=== PATIENT | female | born 2000 | race Caucasian/White ===

== ENCOUNTER 2024-09-21 17:08 | Day surgery (SDC) | payer SELFPAY ==
[2024-09-21 14:41] VITALS: BP 128/95
--- NOTE | 2024-09-21 16:10 | CON.GI ---
Consultation
-
Date/Time Consultation Performed: 09/21/24
Performing Provider: Ryder Faulkner MD
Reason for Consultation: ingested foreign body
Medical History
Chief Complaint / HPI
Chief Complaint: ingested foreign body
History of Present Illness:
The patient is a 19-year-old female past medical history with ingested foreign body. About an hour and a half ago she swallowed the bar part of her tongue ring. She is feeling okay, denies any chest pain, abdominal pain, nausea or vomiting. She
is swallowed the ball part in the past that was never swallowed the bar part. She has no other significant GI issues usually.
Past Medical History
Past Medical History: Other (anxiety)
Past Surgical History: None
Social History
Tobacco: Non-Smoker
Alcohol: None
Family History
Family History: Reviewed & Not Pertinent
Allergies / Home Medications
Allergy/AdvReac Type Severity Reaction Status Date / Time
No Known Allergies Allergy Verified 09/21/24 14:41
Review of Systems
Vital Signs
Temp Pulse Resp BP Pulse Ox
98 F 108 16 128/95 98
09/21/24 14:41 09/21/24 14:41 09/21/24 14:41 09/21/24 14:41 09/21/24 14:41
Physical Exam
Exam
General: NAD
HEENT: MMM, anicteric, no lymphadenopathy
Heart: Regular, no murmurs
Lungs: CTA bilaterally
Abdomen: normal bowel sounds, soft, no tenderness, no rebound or guarding, no masses, bruits or ascites
Extremeties: no edema
Skin: no rashes
Results
Diagnostic Image Results:
KUB shows metallic object in the left upper quadrant, likely within the stomach
Prior GI Procedures:
EGD:
Colonoscopy:
Assessment / Plan
-
1. Ingested foreign body: While the likelihood of perforation is small with tongue ring bar, given still remaining in the stomach we will plan urgent EGD for removal.
-
-
Thank you for consultation and allowing me to participate in the patient's care. Please call the chief controller tower GI physician during the after hours with any questions or concerns.
[2024-09-21 16:11] LABS: % Basophils 0.2 % (0-2); % Eosinophils 1.5 % (0-6); % Immature Granulocytes 0.2 % (0-0.5); % Lymphocytes 21.7 % (20.5-51.1); % Monocytes 5.1 % (1.7-9.3); % Neutrophils 71.3 % (42.2-75.2); Absolute Eosinophils 0.2 10^3/uL (0-0.7); Absolute Lymphocytes 2.3 10^3/uL (1.2-3.4); Absolute Monocytes 0.6 10^3/uL (0.1-0.6); Absolute Neutrophils 7.7 10^3/uL (1.4-6.5); Hematocrit 41.5 % (37.0-47.0); Hemoglobin 14.3 g/dL (12.0-16.0); Mean Corp Hgb Conc. 34.5 g/dL (33.0-37.0); Mean Corpuscular Hgb 30.9 pg (27.0-31.0); Mean Corpuscular Volume 89.6 fL (81.0-99.0); Mean Platelet Volume 8.6 fL (7.4-10.4); Nucleated Red Blood Cells % 0 %; Platelet Count 304 10^3/uL (130-400); Red Blood Cell Count 4.63 10^6/uL (4.20-5.40); White Blood Cell Count 10.7 10^3/uL (4.8-10.8)
[2024-09-21 16:23] LABS: APTT 28.3 Sec (23.4-35.0); INR 1.02; PT 13.7 Sec (11.4-14.6)
[2024-09-21 16:45] LABS: ALT (SGPT) 11 U/L (0-35); AST (SGOT) 20 U/L (14-36); Albumin 4.5 g/dl (3.5-5.0); Alkaline Phosphatase 55 U/L (38-126); Blood Urea Nitrogen 11 mg/dl (7-17); Calcium 9.8 mg/dl (8.4-10.2); Carbon Dioxide 27 mmol/L (22-30); Chloride 106 mmol/L (98-107); Glucose 94 mg/dl (70-99); Potassium 4.1 mmol/L (3.5-5.1); Sodium 140 mmol/L (135-145); Total Protein 6.5 g/dl (6.3-8.2); eGFR > 60.00
--- NOTE | 2024-09-21 17:14 | ED.GENMED ---
History of Present Illness
General
Chief Complaint: Foreign Body Ingestion
Source: patient
Exam Limitations: none
Time Seen by Provider: 09/21/24 15:25
Nursing documentation reviewed up to this point in time: agreed with
History of Present Illness
History of Present Illness:
23 y/o F
no pmh
says 3 days ago she swallowed the ball of her tongue ring but left the bar in
and today at 230 pm she accidentally swallowed the bar
she had mild pain with it passing in her esophagus but no pain now and no vomiting or abd pain
no trouble breathing
Past History
Past History
ED Past Medical History: None
ED Past Surgical History: None
Social History
Tobacco: Non-smoker
Alcohol: None
Drug: None
Personal: Single
Review of Systems
Review of Systems
Allergies reviewed?: Yes
Phy Exam
Physical Exam
Physical Exam:
GENERAL: Alert , in no apparent distress
EYE: pupils equal and reactive
NECK: Supple
ENT: o/p clr, mmm.
CARDIAC: Regular rate and rhythm .
LUNGS: Clear breath sounds bilaterally, no acute respiratory distress, no wheezes/rales/rhonchi
ABDOMEN: Soft, without focal tenderness, no r/g, no cvat, normal bowel sounds
NEUROLOGICAL: Alert and oriented, no focal neuro deficits
SKIN: Warm and dry, skin intact.
MUSCULOSKELETAL: No edema, well perfused. neg robert's sign
PSYCH: Normal and appropriate interaction.
Course
Orders/Labs/Results
Orders:
Orders
09/21/24 14:45
CXR2 [CR Chest - 2 Views ] Urgent
Comment:
Reason For Exam: foreign body ingestion
09/21/24 14:54
Abdomen Xray - 1 View [CR Abdomen - 1 View] Urgent
Comment:
Reason For Exam: swallowed tongue ring
CR Soft Tissue Neck Urgent
Comment:
Reason For Exam: swallowed tongue ring
09/21/24 16:03
Complete Blood Count/With Diff Urgent
Comprehensive Metabolic Panel Urgent
PTT Urgent
Prothrombin Time Urgent
09/21/24 16:06
Dexamethasone Sod Phosphate [Decadron] 20 mg .ROUTE .STK-MED ONE
Lidocaine HCl/Pf [Xylocaine-Mpf 1% Vial] 50 mg .ROUTE .STK-MED ONE
Phenylephrine HCl/0.9% NaCl [Hay-Synephrine] 1,000 mcg .ROUTE .STK-MED ONE
Propofol [Diprivan] 40 ml .ROUTE .STK-MED
Rocuronium [place] [Rocuronium] 50 mg .ROUTE .STK-MED ONE
Succinylcholine Chloride [Succinylcholine] 200 mg .ROUTE .STK-MED ONE
Sugammadex Sodium [Bridion] 200 mg .ROUTE .STK-MED ONE
09/21/24 16:07
Ondansetron Injectable [Zofran] 4 mg .ROUTE .STK-MED ONE
Abnormal Lab Results
09/21/24
16:03
Absolute Neuts (auto) 7.7 H 10^3/uL
(1.4-6.5)
09/21/24 16:03
09/21/24 16:03
Vital Signs
Initial and Last Documented VS:
Initial Vital Signs
Temp Pulse Resp BP Pulse Ox
36.6 C 108 16 128/95 98
09/21/24 14:41 09/21/24 14:41 09/21/24 14:41 09/21/24 14:41 09/21/24 14:41
Last Documented Vital Signs
Temp Pulse Resp BP Pulse Ox
36.6 C 108 16 128/95 98
09/21/24 14:41 09/21/24 14:41 09/21/24 14:41 09/21/24 14:41 09/21/24 14:41
MDM/Problems Addressed
Differential Diagnosis Includes:
esophageal/stoamch fb; fb small bowel
MDM/Problems Addressed:
23 y/o F
accidentally swallowed her tongue ring
no symtpoms now
xray indepdnetnly reviewed by mje shows the ball and the bar are likely within the stoamch
d/w GI dr romero who will take pt to the GI lab for endoscopy
*Critical Care Note
Total Time (30-74mins, 75-104mins- exclusive of procedures): Not Applicable
ED Attending Note
-
Portions of this chart may have been created with voice recognition software.� Occasional wrong word or��sound alike� substitutions may have occurred due to the inherent limitations of voice recognition software.
Discharge Plan
Departure
Patient Disposition: Admit
Date of Disposition: 09/21/24
Time of Disposition: 16:13
Admit to: GI lab
Presentation/result/management discussed w/ accepting MD/DO: will
Condition: Fair
Covid-19: Not Applicable
Discharge Problem:
Foreign body in stomach
Interventions
Interventions:
*Risk Screen - Suicide Last Done: 09/21/24 14:41
*Neglect/Abuse Screening Last Done: 09/21/24 14:41
*Nursing Disposition Last Done: 09/21/24 16:37
GM-Uohrpg-Djopxybcoi Assessment Last Done: 09/21/24 16:35
ED- Pulmonary Assessment Last Done: 09/21/24 16:35
ED-EENT Assessment Last Done: 09/21/24 16:35
Discharge Date and Time
Discharge Date/Time: 09/21/24 16:37
== END 2024-09-21 17:17 | disposition home or self-care (01) ==
LOC: SDS 17:08
PROVIDERS: Physician Assistant; ATTENDING PHYSICIAN Internal Medicine Gastroenterology; EMERGENCY PHYSICIAN Emergency Medicine
DX: T18.2XXA Foreign body in stomach, initial encounter (principal); W44.9XXA Unspecified foreign body entering into or through a natural orifice, initial encounter
CPT/HCPCS: 43247; 70360; 71046; 74018; 80053; 85025; 85610; 85730; 99285